=== PATIENT | male | born 1945 | race Caucasian/White ===

== ENCOUNTER 2018-03-03 11:14 | Emergency (ER) | payer OTHER, BC ==
--- NOTE | 2018-03-03 11:38 | EDPHY ---
H & P Stated Complaint: H/a, Sob, nausea, genl muscle weakness---poss carbon monoxide Time Seen by Provider: 03/03/18 11:23 - Medical/Surgical History Other PMH: htn - Social History Smoking Status: Never smoked Constitutional: Initial Vital Signs Temperature (C) 36.7 C 03/03/18 11:19 Heart Rate 58 L 03/03/18 11:19 Respiratory Rate 16 03/03/18 11:19 Blood Pressure 171/80 H 03/03/18 11:19 O2 Sat (%) 97 03/03/18 11:19 O2 Delivery Mode Non-Rebreather Mask O2 (L/minute) 15 Allergies/Adverse Reactions: No Known Allergies Allergy (Unverified 03/03/18 11:25) Home Medications: Medication Instructions Recorded Enalapril Maleate 03/03/18 Medical Decision Making ED Course/Re-evaluation: headache shakiness CHIEF COMPLAINT: Possible carbon monoxide exposure, headache, weakness HISTORY OF PRESENT ILLNESS: The patient is a 72 y/o male complaining of headache and weakness after possible carbon monoxide exposure. He is from [place] and has been staying at the [facility] in [place] with his for the past week as he helps his daughter fix up her house. Every morning upon waking, he has noted a headache and weakness, including difficulty walking across the room. His has fainted twice this week with nausea, vomiting, and weakness and has been worked up here twice and once at her PCP in [place]. No clear cause for her symptoms identified. This morning, he had the idea it could be carbon monoxide poisoning and purchased a carbon monoxide detector from [employer]. He reports the detector quickly began alarming. He denies any neurologic symptoms. REVIEW OF SYSTEMS: A 10 point review of systems was performed and is negative with the exception of the elements mentioned in the history of present illness. PHYSICAL EXAM: HR, BP, O2 Sat, RR. Temp noted General Appearance: Alert, well hydrated, appropriate, and non-toxic appearing. Head: Atraumatic without scalp tenderness or obvious injury Eyes: Pupils equal, round, reactive to light and accommodation, EOMI, no trauma , no injection. Ears: Clear bilaterally, no perforation, normal landmarks Nose: Atraumatic, no rhinorrhea, clear. Throat: There is no erythema or exudates, no lesions, normal tonsils, mucus membranes moist. Neck: Supple, 2+ carotid upstroke, nontender, no lymphadenopathy. Respiratory: No retractions, no distress, no wheezes, and no accessory muscle use. Lungs are clear to auscultation bilaterally. Cardiovascular: Regular rate and rhythm, no murmurs, rubs, or gallops. Bilateral carotid, radial, dorsalis pedis, and posterior tibial pulses intact. Good capillary refill all extremities. Gastrointestinal: Abdomen is soft, nontender, non-distended, no masses, no rebound, no guarding, no peritoneal signs. Musculoskeletal: Normal active ROM of all extremities, atraumatic. Neurological: Alert, appropriate, and interactive. The patient has normal DTRs and non-focal cranial nerves, motor, sensory, and cerebellar exam. Skin: No rashes, good turgor, no nodules on palpation. Past medical history: Denies Past surgical history: Denies Family history: Non-contributory Social history: Lives in [place], visiting to help daughter paint house, retired , DIFFERENTIAL DIAGNOSIS: The differential diagnosis for the patient's weakness included but was not limited to carbon monoxide poisoning, orthostatic causes including dehydration, cardiogenic and neurogenic causes, and blood loss. MEDICAL DECISION MAKING: The patient presents with headache and weakness every morning since he began staying at the [facility], operated by [facility] in [place]. His has had similar symptoms and three negative workups in the past week. He thought it might be carbon monoxide and purchased a detector. It began alarming after being plugged in. Plan for a carboxyhemoglobin. 11:50 AM - Carboxyhemoglobin of 22. He has been placed on high flow oxygen. has been called to come in for treatment. Fire department notified. Attempted to notify the manager implementation. The patient believes that each room has its own HVAC unit,. He does not meet criteria for hyperbaric chamber at this time as he does not have neurologic symptoms. Plan for a carboxyhemoglobin repeat test in 1 to 2 hours. 2:00 PM - The 2 hour carboxyhemoglobin was 10. In an hour he should be safe to leave. I informed the patient and he agrees with this course of action. - Data Points Laboratory Results: 03/03/18 03/03/18 13:41 11:30 Carboxyhemoglobin 10.0 % H % 22.0 % H* % (0-1.5) (0-1.5) Medications Given: Discontinued Medications Enalapril Maleate (Vasotec) 5 mg PO EDNOW ONE Stop: 03/03/18 13:23 Last Admin: 03/03/18 13:36 Dose: 5 mg Departure - Departure Disposition: Home, Routine, Self-Care Clinical Impression: Carbon monoxide poisoning Qualifiers: Encounter type: initial encounter Injury intent: accidental or unintentional Qualified Code(s): T58.91XA - Toxic effect of carbon monoxide from unspecified source, accidental (unintentional), initial encounter Condition: Good Instructions: Carbon Monoxide Poisoning (ED) Additional Instructions: 1. Do not continue to stay in your room at the [facility]. You will need to find a new place to stay. 2. Return for any worsening of condition including neurologic symptoms or recurrence of previous symptoms. Referrals: [facility]ING [Other] - As per Instructions Report Scribed for: Edilberto Vivar Report Scribed by: Mary Newman Date of Report: 03/03/18 Time of Report: 12:15
[2018-03-03] MEDS ORDERED: ENALAPRIL MALEATE 5 MG TAB PO ONE (13:22)
[2018-03-03 15:19] VITALS: BP 147/85
== END 2018-03-03 15:27 | disposition home or self-care (01) ==
DX: R51 Headache (principal); T58.91XA Toxic effect of carbon monoxide from unspecified source, accidental (unintentional), initial encounter